=== PATIENT | female | born 1985 ===

== ENCOUNTER 2020-07-24 14:34 | Outpatient (REF) | payer OTHER, SELFPAY ==
[2020-07-25 09:48] LABS: BV Int Neg Control Negative (Negative); BV Int Pos Control Positive (Positive)
[2020-07-27 03:52] LABS: N. gonorrhoeae RNA TMA NOT DETECTED (NOT DETECTED)
[2020-07-27 15:25] LABS: C. trachomatis RNA TMA NOT DETECTED (NOT DETECTED)
== END 2020-07-24 14:35 | disposition home or self-care (01) ==
LOC: HO.LAB 14:34
PROVIDERS: PCP Internal Medicine; Visit Provider Advanced Practice Midwife
DX: Z11.3 Encounter for screening for infections with a predominantly sexual mode of transmission (principal); N89.8 Other specified noninflammatory disorders of vagina
CPT/HCPCS: 87480; 87491; 87510; 87591; 87660; 99212

== ENCOUNTER → 2020-10-02 13:01 | Outpatient (BNVA) | payer OTHER, SELFPAY | PROVIDERS: Visit Provider Advanced Practice Midwife ==

== ENCOUNTER 2021-01-25 12:15 | Outpatient (REF) | payer OTHER, SELFPAY ==
[2021-01-25 14:02] LABS: Glucose Urine UA NEG (NEG); Leukocyte Esterase Urine NEG (NEG); Nitrite Urine NEG (NEG); PH 5.5 (5.0-8.0); Specific Gravity - Urine <= 1.005 (1.005-1.025); Urine Blood NEG (NEG); Urine Ketones NEG (NEG); Urine Protein NEG (NEG-TRACE)
[2021-01-25 14:06] LABS: Appearance Urine CLEAR; Color Urine STRAW
== END 2021-01-25 12:16 | disposition home or self-care (01) ==
LOC: HO.LAB 12:15
PROVIDERS: PCP Internal Medicine; Visit Provider Internal Medicine
DX: R30.0 Dysuria (principal)
CPT/HCPCS: 81003

== ENCOUNTER 2021-02-01 13:55 | Outpatient (REF) | payer OTHER, SELFPAY | END 2021-02-01 13:56 | disposition home or self-care (01) | LOC: HO.LNP 13:55 | PROVIDERS: Visit Provider Hospitalist | DX: R30.0 Dysuria (principal) | CPT/HCPCS: 87086; 87088 ==

== ENCOUNTER 2021-02-26 12:51 | Outpatient (REF) | payer OTHER, SELFPAY ==
[2021-02-26 14:39] LABS: Glucose Urine UA NEG (NEG); Leukocyte Esterase Urine NEG (NEG); Nitrite Urine NEG (NEG); Specific Gravity - Urine 1.025 (1.005-1.025); Urine Blood TRACE (NEG); Urine Ketones NEG (NEG); Urine Protein NEG (NEG-TRACE)
[2021-02-26 14:46] LABS: Appearance Urine CLEAR; Color Urine YELLOW
[2021-02-26 15:34] LABS: Bacteria Urine 1+ /LPF; RBC Urine 0-2 /HPF (0); Squamous Epithelial Cell Urine 4+ /LPF
== END 2021-02-26 12:52 | disposition home or self-care (01) ==
LOC: HO.LAB 12:51
PROVIDERS: PCP Internal Medicine; Visit Provider Hospitalist
DX: R30.0 Dysuria (principal)
CPT/HCPCS: 81001; 81003; 87086

== ENCOUNTER 2021-11-12 12:57 | Outpatient (REF) | payer OTHER, SELFPAY ==
[2021-11-13 05:54] LABS: CT PCR NOT DETECTED (Not Detect.); NG PCR NOT DETECTED (Not Detect.)
[2021-11-13 15:41] LABS: BV Int Neg Control Negative (Negative); BV Int Pos Control Positive (Positive)
[2021-11-14 16:32] LABS: HPV mRNA E6/E7 rflx Not Detected (Not Detected)
== END 2021-11-12 12:58 | disposition home or self-care (01) ==
LOC: HO.LAB 12:57
PROVIDERS: Visit Provider Advanced Practice Midwife
DX: Z01.419 Encounter for gynecological examination (general) (routine) without abnormal findings (principal); N89.8 Other specified noninflammatory disorders of vagina; Z11.3 Encounter for screening for infections with a predominantly sexual mode of transmission; Z11.8 Encounter for screening for other infectious and parasitic diseases; Z11.51 Encounter for screening for human papillomavirus (HPV); R61 Generalized hyperhidrosis; Z98.51 Tubal ligation status; Z79.899 Other long term (current) drug therapy; B37.3 Candidiasis of vulva and vagina
CPT/HCPCS: 87480; 87491; 87510; 87591; 87624; 87660; 88142

== ENCOUNTER 2022-03-22 18:36 | Outpatient (REF) | payer OTHER, SELFPAY ==
[2022-03-22 19:03] LABS: Appearance Urine Clear; Color Urine Yellow; Glucose Urine UA Negative (Negative); Leukocyte Esterase Urine Large (3+) (Negative); Nitrite Urine Negative (Negative); Specific Gravity - Urine <= 1.005 (1.005-1.025); Urine Blood Small (1+) (Negative); Urine Ketones 80 mg/dL (Negative); Urine Protein Negative (Neg-Trace)
[2022-03-22 19:19] LABS: Bacteria Urine Trace (None Seen); RBC Urine 0-2 /HPF (0-2); UACC Culture Trigger YES; WBC Urine 21-50 /HPF (0-5)
[2022-03-23 09:46] LABS: BV Int Neg Control Negative (Negative); BV Int Pos Control Positive (Positive)
== END 2022-03-22 18:37 | disposition home or self-care (01) ==
LOC: HO.LNP 18:36
PROVIDERS: Visit Provider Physician Assistant Medical
DX: B37.3 Candidiasis of vulva and vagina (principal); R30.0 Dysuria; N76.0 Acute vaginitis
CPT/HCPCS: 81001; 81003; 87086; 87480; 87510; 87660

== ENCOUNTER 2022-03-23 13:46 | Outpatient (REF) | payer OTHER, SELFPAY ==
[2022-03-23 15:14] LABS: MANUAL DIFF FLAG NO
[2022-03-23 15:18] LABS: Basophils Percent Auto 0.5 % (0-2); Eosinophils Percent Auto 0.3 % (0-4); Hematocrit 37.2 % (37.0-47.0); Hemoglobin 11.8 g/dl (12.0-16.0); Imm Gran Abs Auto 0.02 X10*3/uL (0.00-0.03); Imm Gran Pct Auto 0.3 % (0.0-0.4); Lymphocytes Absolute Auto 2.4 X10*3/uL (1.2-4.9); Lymphocytes Percent Auto 30.9 % (20-40); Mean Corpuscular HGB Conc 31.7 g/dl (31.0-35.0); Mean Corpuscular Hemoglobin 24.7 pg (27.0-33.0); Mean Corpuscular Volume 77.8 fL (80.0-98.0); Mean Platelet Volume 9.8 fL (9.4-12.3); Monocytes Absolute Auto 0.7 X10*3/uL (0.1-1.2); Monocytes Percent Auto 9.5 % (2-11); Neutrophils Absolute Auto 4.5 x10*3/uL (2.0-8.3); Neutrophils Percent Auto 58.5 % (45-73); Platelet Count 369 X10*3/uL (160-400); Red Blood Count 4.78 X10*6/uL (4.20-5.50); Red Cell Distribution Width 17.9 % (11.0-16.0); White Blood Count 7.7 X10*3/uL (4.8-10.8)
[2022-03-23 15:38] LABS: Iron 37 mcg/dL (30-160); Percent Iron Saturation 8 % (15-50); Total Iron Binding Capacity 474 mcg/dL (228-428); Unsaturated Iron Binding 437 ug/dL
== END 2022-03-23 13:47 | disposition home or self-care (01) ==
LOC: HO.HMGCLDS 13:46
PROVIDERS: Visit Provider Physician Assistant Medical
DX: N94.6 Dysmenorrhea, unspecified (principal)
CPT/HCPCS: 36415; 83540; 85025

== ENCOUNTER 2022-03-30 11:06 | Outpatient (REF) | payer OTHER, SELFPAY ==
[2022-03-30 14:18] LABS: Appearance Urine Clear; Color Urine Yellow; Glucose Urine UA Negative (Negative); Leukocyte Esterase Urine Negative (Negative); Nitrite Urine Negative (Negative); PH 6.5 (5.0-8.0); Specific Gravity - Urine <= 1.005 (1.005-1.025); Urine Blood Negative (Negative); Urine Ketones Negative (Negative); Urine Protein Negative (Neg-Trace)
== END 2022-03-30 11:07 | disposition home or self-care (01) ==
LOC: HO.HMGCLDS 11:06
PROVIDERS: Visit Provider Physician Assistant Medical
DX: R30.0 Dysuria (principal)
CPT/HCPCS: 81003

== ENCOUNTER 2022-06-14 11:12 | Outpatient (REF) | payer OTHER, SELFPAY ==
[2022-06-14 15:49] LABS: CT PCR NOT DETECTED (Not Detect.); NG PCR NOT DETECTED (Not Detect.)
[2022-06-15 10:23] LABS: BV Int Neg Control Negative (Negative); BV Int Pos Control Positive (Positive)
== END 2022-06-14 11:13 | disposition home or self-care (01) ==
LOC: HO.LNP 11:12
PROVIDERS: Visit Provider Advanced Practice Midwife
DX: Z11.3 Encounter for screening for infections with a predominantly sexual mode of transmission (principal); N89.8 Other specified noninflammatory disorders of vagina
CPT/HCPCS: 87480; 87491; 87510; 87591; 87660; 99212

== ENCOUNTER 2023-02-27 09:57 | Outpatient (AMB) | payer OTHER, SELFPAY ==
[2023-02-27 09:58] VITALS: BP 116/72; BMI 26.6
--- NOTE | 2023-02-27 09:58 | MHC.OFFVIS ---
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 She had her tubes removed it after the of her last child and so she is not worried about contraception. She has hyperhidrosis and the medication she is on causes lots of side effects for her in terms ends of dry mouth and other issues and in fact she had an episode of a dry cough during the visit and needed to drink some extra water she works out goes to the gym and lifts weights so she is definitely in shape. She is not particularly worried about STIs but wants full testing. She does remember having an abnormal Pap smear in the past although last year's was normal. She is currently in between primary care providers because she had been seen for a while. [facility] Medical History Hyperhidrosis Surgical History H/O abdominoplasty Hx of tonsillectomy Hx of tubal ligation Family History Mother High cholesterol Maternal Grandmother Diabetes mellitus Father High cholesterol Social History Alcohol intake: current Alcohol intake frequency: holidays/special occasions only Sexual orientation: Straight/Heterosexual Female Reproductive History Menstrual Age of Menarche: 16 Date of last menstrual period: 02/07/23 control method: permanent sterilization Total pregnancies: 4 Number of Living Children: 4 Date of last pap smear: 11/12/21 (wnl) History of abnormal pap smear: Yes (2015 [facility] 2013 ASCUS) Physical Exam Vital Signs: Last Vital Signs BP 116/72 02/27/23 09:58 BMI result Body Mass Index 26.6 Const General: healthy appearing, comfortable, no acute distress, well developed and alert Nutritional Appearance: average body habitus Orientation/consciousness: patient oriented x3 Limitations: no limitations HEENT Head: Yes normocephalic Neck Neck: Yes normal visual inspection Chest Chest palpation & inspection: normal inspection of the chest Breast/axilla inspection: normal inspection of the breasts and normal inspection of the axillae Breast/axilla palpation: normal palpation of the breasts and normal palpation of the axillae Resp Effort & Inspection: normal respiratory effort GI Inspection: Yes normal to inspection, No Abdominal wall edema and No distended Palpation (GI): Soft to palpation and nontender Other: Scar from abdominal plasty External vulva within normal limits vagina is moist cervix is multiparous white discharge consistent with luteal phase uterus small firm midposition nontender very good tone with Kegel adnexa nontender General: Yes bladder normal to palpation External Female Exam: normal external appearance and normal appearance of the urethra Speculum Exam - Vagina: normal appearance of the vagina, normal palpation and normal vaginal discharge Speculum Exam - Cervix: normal appearance of the cervix, normal palpation and nontender Bimanual exam- vagina & uterus: normal bimanual exam, normal palpation, uterine size normal, bladder normal to palpation, consistency normal, normal palpation, uterine mobility normal, uterine shape normal, No Cervical tenderness present, non-tender and no cervical motion tenderness Bimanual Exam- Adnexa, other: normal adnexae, no masses, normal and No adnexal tenderness Neuro General: patient oriented x3 Assessment & Plan Assessment & Plan (1) Screen for sexually transmitted diseases: Code(s): Z11.3 - Encounter for screening for infections with a predominantly sexual mode of transmission (2) Breast cancer screening: Code(s): Z12.39 - Encounter for other screening for malignant neoplasm of breast (3) Cervical cancer screening: Comment: Patient states history of abnormal Pap years ago. 11/12/21 Pap equals negative with negative HPV Code(s): Z12.4 - Encounter for screening for malignant neoplasm of cervix (4) Well woman exam with routine gynecological exam: Code(s): Z01.419 - Encounter for gynecological examination (general) (routine) without abnormal findings Plan -----Discussed in this visit the following: healthy balanced diet, regular and consistent exercise, getting recommended health screens, doing the best she can for her particular health concerns, kegel exercises, pap smear screening and followup recommendations, mammography screening and SBE, normal changes in cycles in her life stage--- . She isn't particularly worried but would like to get testing for HIV and hep BC and syphilis. One of placing orders I could see that there was comprehensive fasting blood test that had been done yet that were ordered last March by another provider I informed the patient of this and she had for gotten but she will go tomorrow morning fasting and get L everything done together. She is on the portal so she can get her results. She is taking excellent self care of herself and we will see her next year Orders: Orders Hepatitis B Surface Antigen Today Z01.419 - Encounter for gynecological examination (general) (routine) without abnormal findings, Z11.3 - Encounter for screening for infections with a predominantly sexual mode of transmission, Z12.39 - Encounter for other screening for malignant neoplasm of breast, Z12.4 - Encounter for screening for malignant neoplasm of cervix Hepatitis C Antibody Today Z01.419 - Encounter for gynecological examination (general) (routine) without abnormal findings, Z11.3 - Encounter for screening for infections with a predominantly sexual mode of transmission, Z12.39 - Encounter for other screening for malignant neoplasm of breast, Z12.4 - Encounter for screening for malignant neoplasm of cervix HIV Ab/Ag Today Z01.419 - Encounter for gynecological examination (general) (routine) without abnormal findings, Z11.3 - Encounter for screening for infections with a predominantly sexual mode of transmission, Z12.39 - Encounter for other screening for malignant neoplasm of breast, Z12.4 - Encounter for screening for malignant neoplasm of cervix Syphilis Screen Today Z01.419 - Encounter for gynecological examination (general) (routine) without abnormal findings, Z11.3 - Encounter for screening for infections with a predominantly sexual mode of transmission, Z12.39 - Encounter for other screening for malignant neoplasm of breast, Z12.4 - Encounter for screening for malignant neoplasm of cervix Coding Level of Care Code Est Pt Prev Care 18-39y(21947) Diagnoses Screen for sexually transmitted diseases Z11.3 Breast cancer screening Z12.39 Cervical cancer screening Z12.4 Well woman exam with routine gynecological exam Z01.419
== END 2023-02-27 10:58 | disposition home or self-care (01) ==
LOC: HO.HWS 09:57
PROVIDERS: Visit Provider Advanced Practice Midwife
DX: Z01.419 Encounter for gynecological examination (general) (routine) without abnormal findings (principal); Z11.3 Encounter for screening for infections with a predominantly sexual mode of transmission; Z12.39 Encounter for other screening for malignant neoplasm of breast
CPT/HCPCS: 99395

== ENCOUNTER 2023-02-27 09:57 | Outpatient (REF) | payer OTHER, SELFPAY ==
[2023-02-28 02:36] LABS: CT PCR NOT DETECTED (Not Detect.); NG PCR NOT DETECTED (Not Detect.)
[2023-02-28 13:20] LABS: BV Int Neg Control Negative (Negative); BV Int Pos Control Positive (Positive)
[2023-03-07 06:10] LABS: HPV mRNA E6/E7 rflx Not Detected (Not Detected)
== END 2023-02-27 09:58 | disposition home or self-care (01) ==
LOC: HO.LNP 09:57
PROVIDERS: Visit Provider Advanced Practice Midwife
DX: Z01.419 Encounter for gynecological examination (general) (routine) without abnormal findings (principal); Z12.39 Encounter for other screening for malignant neoplasm of breast; Z20.2 Contact with and (suspected) exposure to infections with a predominantly sexual mode of transmission
CPT/HCPCS: 0353U; 87480; 87510; 87624; 87660; 88142

== ENCOUNTER 2023-02-28 12:55 | Outpatient (REF) | payer OTHER, SELFPAY ==
[2023-03-03 04:03] LABS: Syphilis Screen Nonreactive (Nonreactive)
[2023-03-03 04:21] LABS: HBsAGNum1 0.58 S/CO (0.00-0.99); HIV AB/AG Nonreactive (Nonreactive); HIV Num 1 0.06 S/CO (0.00-0.99); Hepatitis B Surface Antigen Negative (Negative); ~Hepatitis C Antibody Nonreactive (Nonreactive)
== END 2023-02-28 12:56 | disposition home or self-care (01) ==
LOC: HO.LAB 12:55
PROVIDERS: Visit Provider Advanced Practice Midwife
DX: Z01.419 Encounter for gynecological examination (general) (routine) without abnormal findings (principal); Z12.39 Encounter for other screening for malignant neoplasm of breast; Z11.3 Encounter for screening for infections with a predominantly sexual mode of transmission
CPT/HCPCS: 36415; 86780; 86803; 87340; 87389

== ENCOUNTER 2023-12-22 13:14 | Outpatient (AMB) | payer OTHER, SELFPAY ==
[2023-12-22 14:17] VITALS: BP 130/76; PULSE 115; TEMP 36.4; O2SAT 96; BMI 26.4
--- NOTE | 2023-12-22 14:17 | MHC.OFFWIV ---
Intake Vital Signs 12/22/23 14:17 Height 5 ft 3 in Weight 149 lb BMI 26.4 BP 130/76 Blood Pressure Location Lt brachial Position Sitting Pulse 115 H Pulse Source Pulse Oximeter Temp 97.6 F Temp Source Temporal Artery Scan Pulse Oximetry (%) 96 Oxygen Delivery Method Room Air Intake Visit Reasons: EP rash on back Intake Note: pt is her today for rash on back started july Patient Tobacco Use Status: Never used Tobacco Allergies No Known Allergies Allergy (Mild, Verified 12/22/23 14:20) UNKNOWN Do you need a note to return to daycare/school/sports/work: Yes HPI HPI Comments History of Present Illness Details Patient presents to the walk-in today for sick visit Complaining of rash to left lower back for last 5 months States it is worse in the morning where where it will be red and itchy, improves throughout the day No known allergies no changes in diet, lotions, laundry detergents, soaps PFSH Medical History Hyperhidrosis Surgical History H/O abdominoplasty Hx of tonsillectomy Hx of tubal ligation Family History Mother High cholesterol Maternal Grandmother Diabetes mellitus Father High cholesterol Social History Alcohol intake: current Alcohol intake frequency: holidays/special occasions only Patient Tobacco Use Status: Never used Tobacco Sexual orientation: Straight/Heterosexual Female Reproductive History Menstrual Age of Menarche: 16 Review of Systems Const All systems reviewed & are unremarkable except as noted in HPI and below Physical Exam Vital Signs: Last Vital Signs Temp 97.6 F 12/22/23 14:17 Pulse 115 H 12/22/23 14:17 BP 130/76 12/22/23 14:17 Pulse Ox 96 12/22/23 14:17 Oxygen Delivery Method Room Air 12/22/23 14:17 BMI result Body Mass Index 26.4 General: awake, alert, oriented. Answers questions appropriately. Fully engaged in examination. Skin: warm, dry, intact. Faint pink macular rash left lower back HEENT: Normocephalic. Hearing intact. Cardiac: External chest normal in appearance. Respiratory: No cough, audible wheezing or stridor. Abdomen: without gross distension. MS: No obvious swelling or deformities. Neurological: Oriented to person, place, time and situation. Thought process intact. No gait abnormalities appreciated. Psychiatric: Appropriate mood and affect. Good judgment and insight. Assessment & Plan Assessment & Plan (1) Rash: Code(s): R21 - Rash and other nonspecific skin eruption Plan Hydroxyzine 25 mg p.o. b.i.d. as needed for itching Referral placed for dermatology follow-up All questions and concerns were answered, patient agrees with the plan. Follow up with PCP, dermatology or return here for any new or worsening symptoms Orders: Referrals Dermatology Referral R21 - Rash and other nonspecific skin eruption Medications: New hydroxyzine HCl 25 mg PO BID PRN 30 tabs 0RF itching Coding Level of Care Code Est Pt Level 3 (41023) Diagnoses Rash R21
== END 2023-12-22 16:06 | disposition home or self-care (01) ==
PROVIDERS: Visit Provider Registered Nurse Emergency
DX: R21 Rash and other nonspecific skin eruption (principal)
CPT/HCPCS: 99213

== ENCOUNTER 2024-03-05 09:19 | Outpatient (REF) | payer OTHER, SELFPAY ==
[2024-03-06 09:14] LABS: Bacterial Vaginosis PCR NEGATIVE (Negative); Candida Group PCR NOT DETECTED (Not Detect); Candida glab krusei PCR NOT DETECTED (Not Detect); Trichomonas vaginalis PCR NOT DETECTED (Not Detect)
[2024-03-06 09:51] LABS: CT PCR NOT DETECTED (Not Detect.); NG PCR NOT DETECTED (Not Detect.)
[2024-03-09 19:44] LABS: HPV mRNA E6/E7 Not Detected (Not Detected)
== END 2024-03-05 09:20 | disposition home or self-care (01) ==
LOC: HO.LAB 09:19
PROVIDERS: Visit Provider Advanced Practice Midwife
DX: Z01.419 Encounter for gynecological examination (general) (routine) without abnormal findings (principal); Z11.51 Encounter for screening for human papillomavirus (HPV); Z20.2 Contact with and (suspected) exposure to infections with a predominantly sexual mode of transmission; N89.8 Other specified noninflammatory disorders of vagina
CPT/HCPCS: 0352U; 36415; 87491; 87591; 87624; 88175; 99395

== ENCOUNTER 2024-03-05 09:19 | Outpatient (AMB) | payer OTHER, SELFPAY ==
--- NOTE | 2024-03-05 09:27 | A.OFFVIS_ITS ---
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: No Contract Sheltered Workshop Supervisor Services: Contract Sheltered Workshop Supervisor Present Operating Theatre Technician: Operating Theatre Technician Present Allergies No Known Allergies Allergy (Mild, Verified 03/05/24 10:03) UNKNOWN Medication List - Last Reconciled 03/05/24 by Meli Ruano CNM glycopyrrolate 2 mg PO QID Is last menstrual period known: Yes Last menstrual period: 02/18/24 Do you need a note to return to daycare/school/sports/work: No HPI HPI 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 She is not having any nurse gynecology concerns she had an abnormal Pap smear last year and had an abnormal Pap smear many years ago when she was younger. Per ask cap the Pap needs to be repeated this year the Pap was DANYEL 1 with negative HPV in 2022. She has had her tubes tied. She delivered 4 children vaginally she later had abdominoplasty, when she was 21 years old but she regrets that she said she was talked into it by her mother. She has been feeling like she is taking better care of herself lately she is trying to exercise regularly with weights and cardio and she is also trying to eat better. The only medication she is on is for hydro hidradenitis which is very annoying if she does not take it her hands drip. She says she does not have a primary care provider she is to have Dr. Leiva but she was changed from him she would like to have a women PCC she says Dr. Funes has continued her prescription but she is not her PCC. She has no family history of breast cancers as far she knows. [facility] Medical History Hyperhidrosis Surgical History H/O abdominoplasty Hx of tonsillectomy Hx of tubal ligation Family History Mother High cholesterol Maternal Grandmother Diabetes mellitus Father High cholesterol Social History Alcohol intake: current Alcohol intake frequency: holidays/special occasions only Patient Tobacco Use Status: Never used Tobacco Sexual orientation: Straight/Heterosexual Female Reproductive History Menstrual Age of Menarche: 16 Duration of menses: 3-5 days Date of last menstrual period: 02/18/24 control method: progestin IUCD Total pregnancies: 4 Full term: 4 Date of last pap smear: 03/04/23 (Abn. pap, DANYEL I, previous pap neg. 11/13/21) History of abnormal pap smear: Yes (Abn.) Physical Exam Const General: healthy appearing, comfortable, no acute distress, well developed and alert Nutritional Appearance: average body habitus Orientation/consciousness: patient oriented x3 Limitations: no limitations HEENT Head: Yes normocephalic Neck Neck: Yes normal visual inspection Chest Chest palpation & inspection: normal inspection of the chest Breast/axilla inspection: normal inspection of the breasts and normal inspection of the axillae Breast/axilla palpation: normal palpation of the breasts and normal palpation of the axillae Resp Effort & Inspection: normal respiratory effort GI Inspection: Yes normal to inspection, No Abdominal wall edema and No distended Palpation (GI): Soft to palpation and nontender General: Yes bladder normal to palpation External Female Exam: normal external appearance and normal appearance of the urethra Speculum Exam - Vagina: normal appearance of the vagina, normal palpation and normal vaginal discharge Speculum Exam - Cervix: normal appearance of the cervix, normal palpation and nontender Bimanual exam- vagina & uterus: normal bimanual exam, normal palpation, uterine size normal, bladder normal to palpation, consistency normal, normal palpation, uterine mobility normal, uterine shape normal, No Cervical tenderness present, non-tender and no cervical motion tenderness Bimanual Exam- Adnexa, other: normal adnexae, no masses, normal and No adnexal tenderness Neuro General: patient oriented x3 Results Reviewed Results Reviewed: Name: Dannielle Olivares Age/Sex: 37/F Attending: Meli Ruano CNM : 1985 Submitted by: Meli Ruano CNM Copies to: Physician,Nonstaff MR #: [id number] Status: DEP REF Collected: 02/27/23 Location: [facility] Received: 03/04/23 Interpretation General Category: Epithelial cell abnormality. Adequacy: Endocervical component present. Interpretation: Low grade squamous intraepithelial lesion (DANYEL I). HPV mRNA E6/E7: Not Detected This assay detects E6/E7 viral messenger RNA (mRNA) from 14 high-risk HPV types (16, 18, 31, 33, 35, 39, 45, 51, 52, 56, 58, 59, 66, 68) HPV testing performed by [facility], [place], [place]. See reference laboratory portion of the EMR for entire report. Clinical Information LMP: 02/07/23 Previous PAP test: 11/12/21, Abnormal Other history: 2013 ASCUS, 2015 DANYEL I Material Received ThinPrep-[place]ical [place] [address] [phone] [place] [address] Electronically Signed By: Sixto Awan MD 03/13/23 3227 The Pap Test is a screening procedure with the inherent possibility of both false negative and false positive results. Results should be interpreted in the context of historic and current clinical findings. Reliability of the Pap Test is enhanced by performing the test on a regular repetitive basis. Patient: Dannielle Olivares Age/Sex: Assessment & Plan Assessment & Plan (1) Well woman exam with routine gynecological exam: Code(s): Z01.419 - Encounter for gynecological examination (general) (routine) without abnormal findings Category: Medical (2) Screen for sexually transmitted diseases: Code(s): Z11.3 - Encounter for screening for infections with a predominantly sexual mode of transmission Category: Medical (3) Breast cancer screening: Code(s): Z12.39 - Encounter for other screening for malignant neoplasm of breast Category: Medical (4) Cervical cancer screening: Comment: Patient states history of abnormal Pap years ago. ( when she had her 17 yr old) 11/12/21 Pap equals negative with negative HPV; 02/27/2023 Pap shows DANYEL 1 with negative HPV,; [facility]P re 1 yr followup. Code(s): Z12.4 - Encounter for screening for malignant neoplasm of cervix Category: Medical Plan -----Discussed in this visit the following: healthy balanced diet, regular and consistent exercise, getting recommended health screens, doing the best she can for her particular health concerns, kegel exercises, pap smear screening and followup recommendations, mammography screening and SBE, normal changes in cycles in her life stage--- . Reviewed her history of abnormal Paps and reviewed the natural history of HPV infection she started being sexually active very young and at the time Pap smear is being done I younger ages as well. She delivered 4 children vaginally, and then had tubal like her 1st abnormal Pap was after her 3rd child. We will wait the results of this Pap smear reviewed the variable amounts of time Pap smears are taking to be reviewed and if she does not hear from us within a month I asked her to call to check on the Pap to make sure did not get lost in system She is doing very well with self-care and eating well and exercise, and I congratulated her on that. I apologized for the erroneous information about her appointment location today by e-mail and text. I suggested that she may want to actually go to her PCC office where she had been seen and try to ensure that she is being given a PCC provider, since she has been without one officially for years.( she has needed to go to urgent care when she has an issue such as a rash that she had some months ago, that since disappeared) she is interested in full STI testing I will place the orders. Orders: Orders Hepatitis B Surface Antigen Today Z01.419 - Encounter for gynecological examination (general) (routine) without abnormal findings, Z11.3 - Encounter for screening for infections with a predominantly sexual mode of transmission, Z12.39 - Encounter for other screening for malignant neoplasm of breast, Z12.4 - Encounter for screening for malignant neoplasm of cervix Hepatitis C Antibody Today Z01.419 - Encounter for gynecological examination (general) (routine) without abnormal findings, Z11.3 - Encounter for screening for infections with a predominantly sexual mode of transmission, Z12.39 - Encounter for other screening for malignant neoplasm of breast, Z12.4 - Encounter for screening for malignant neoplasm of cervix Syphilis Screen Today Z01.419 - Encounter for gynecological examination (general) (routine) without abnormal findings, Z11.3 - Encounter for screening for infections with a predominantly sexual mode of transmission, Z12.39 - Encounter for other screening for malignant neoplasm of breast, Z12.4 - Encounter for screening for malignant neoplasm of cervix HIV Ab/Ag Today Z01.419 - Encounter for gynecological examination (general) (routine) without abnormal findings, Z11.3 - Encounter for screening for infections with a predominantly sexual mode of transmission, Z12.39 - Encounter for other screening for malignant neoplasm of breast, Z12.4 - Encounter for screening for malignant neoplasm of cervix Coding Level of Care Code Est Pt Prev Care 18-39y(21513) Diagnoses Well woman exam with routine gynecological exam Z01.419 Screen for sexually transmitted diseases Z11.3 Breast cancer screening Z12.39 Cervical cancer screening Z12.4
[2024-03-05 10:02] VITALS: BP 110/60; BMI 26.0
== END 2024-03-05 10:59 | disposition home or self-care (01) ==
PROVIDERS: Visit Provider Advanced Practice Midwife
DX: Z01.419 Encounter for gynecological examination (general) (routine) without abnormal findings (principal); Z11.3 Encounter for screening for infections with a predominantly sexual mode of transmission; Z12.39 Encounter for other screening for malignant neoplasm of breast; Z12.4 Encounter for screening for malignant neoplasm of cervix
CPT/HCPCS: 99395

== ENCOUNTER 2024-06-19 09:38 | Outpatient (REF) | payer OTHER, SELFPAY ==
[2024-06-20 08:54] LABS: Syphilis Screen Nonreactive (Nonreactive)
[2024-06-20 09:00] LABS: HBsAGNum1 0.36 S/CO (0.00-0.99); HIV AB/AG Nonreactive (Nonreactive); HIV Num 1 0.09 S/CO (0.00-0.99); Hepatitis B Surface Antigen Negative (Negative); ~HepC Num1 1.36 S/CO (0.00-0.79); ~Hepatitis C Antibody Reactive (Nonreactive)
== END 2024-06-19 09:39 | disposition home or self-care (01) ==
LOC: HO.LAB 09:38
PROVIDERS: Visit Provider Advanced Practice Midwife
DX: Z01.419 Encounter for gynecological examination (general) (routine) without abnormal findings (principal); Z11.3 Encounter for screening for infections with a predominantly sexual mode of transmission; Z12.39 Encounter for other screening for malignant neoplasm of breast
CPT/HCPCS: 36415; 86780; 86803; 87340; 87389

== ENCOUNTER 2024-07-05 15:29 | Outpatient (AMB) | payer OTHER, SELFPAY ==
[2024-07-05 15:37] VITALS: PULSE 113; O2SAT 99; BMI 26.6
--- NOTE | 2024-07-05 15:37 | MHC.OFFVIS ---
Vital Signs 07/05/24 15:37 Height 5 ft 3 in Weight 150 lb BMI 26.6 Pulse 113 H Pulse Source Pulse Oximeter Pulse Oximetry (%) 99 Oxygen Delivery Method Room Air Intake Visit Reasons: Meli Ob reff hepatitis C without hepatic coma Allergies No Known Allergies Allergy (Mild, Verified 07/05/24 15:38) UNKNOWN HPI HPI Meli Calero reff hepatitis C without hepatic coma: Details: She is here for evaluation Hepatitis C. 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 She had syphilis reactive on 06/19. She has RPR negative and HIV negative. PFSH Medical History Hyperhidrosis Surgical History H/O abdominoplasty Hx of tonsillectomy Hx of tubal ligation Family History Mother High cholesterol Maternal Grandmother Diabetes mellitus Father High cholesterol Social History Alcohol intake: current Alcohol intake frequency: holidays/special occasions only Patient Tobacco Use Status: Never used Tobacco Sexual orientation: Straight/Heterosexual Female Reproductive History Menstrual Age of Menarche: 16 Review of Systems Const All systems reviewed & are unremarkable except as noted in HPI and below Physical Exam Vital Signs: Last Vital Signs Pulse 113 H 07/05/24 15:37 Pulse Ox 99 07/05/24 15:37 Oxygen Delivery Method Room Air 07/05/24 15:37 BMI result Body Mass Index 26.6 Const General: cooperative Orientation/consciousness: patient oriented x3 HEENT Head: Yes normal to inspection Mouth: Normal oral and palatal mucosa present Eyes General: appearance normal, both eyes and all related structures Pupils: Equal, round and reactive pupils present Resp Effort & Inspection: normal respiratory effort Cardio Rate: regular rate Rhythm: regular rhythm GI Palpation (GI): Soft to palpation and nontender General: Yes no CVA tenderness Back/Spine/Pelvis Back: no CVA tenderness Skin General skin exam: no rashes or lesions noted Neuro General: patient oriented x3 Cranial nerves: Yes CN's II-XII intact bilaterally and Yes Equal, round and reactive pupils present Extrem General: Yes normal to inspection Psych Appearance: grossly normal Assessment & Plan Assessment & Plan (1) Hepatitis-C: Comment: She has new diagnosis Hepatitis C positive. Code(s): B19.20 - Unspecified viral hepatitis C without hepatic coma Category: Medical Plan: Would check Hepatitis C viral load. Start Epclusa or Mavyret if positive. Orders: Orders Hepatitis C Genotype 07/05/24 B19.20 - Unspecified viral hepatitis C without hepatic coma Prothrombin Time INR 07/05/24 B19.20 - Unspecified viral hepatitis C without hepatic coma Basic Metabolic Panel 07/05/24 B19.20 - Unspecified viral hepatitis C without hepatic coma Hepatitis A IgG 07/05/24 B19.20 - Unspecified viral hepatitis C without hepatic coma Hepatitis C Viral Load 07/05/24 B19.20 - Unspecified viral hepatitis C without hepatic coma Liver Fibrosis Pnl 07/05/24 B19.20 - Unspecified viral hepatitis C without hepatic coma Complete Blood Count Auto Diff 07/05/24 B19.20 - Unspecified viral hepatitis C without hepatic coma Hepatitis B Surface Antibody 07/05/24 B19.20 - Unspecified viral hepatitis C without hepatic coma Coding Level of Care Code New Pt Level 3 (36447) Diagnoses Hepatitis-C B19.20
== END 2024-07-05 15:54 | disposition home or self-care (01) ==
PROVIDERS: Visit Provider Internal Medicine
DX: B19.20 Unspecified viral hepatitis C without hepatic coma (principal)
CPT/HCPCS: 99203

== ENCOUNTER 2024-07-05 15:29 | Outpatient (REF) | payer OTHER, SELFPAY ==
[2024-07-05 16:15] LABS: MANUAL DIFF FLAG NO
[2024-07-05 17:12] LABS: Basophils Percent Auto 0.7 % (0-2); Eosinophils Absolute Auto 0.1 X10*3/uL (0.0-0.4); Eosinophils Percent Auto 1.7 % (0-4); Hematocrit 37.5 % (37.0-47.0); Hemoglobin 12.5 g/dl (12.0-16.0); Imm Gran Abs Auto 0.02 X10*3/uL (0.00-0.03); Imm Gran Pct Auto 0.3 % (0.0-0.4); Lymphocytes Absolute Auto 2.2 X10*3/uL (1.2-4.9); Lymphocytes Percent Auto 37.3 % (20-40); Mean Corpuscular HGB Conc 33.3 g/dl (31.0-35.0); Mean Corpuscular Hemoglobin 27.3 pg (27.0-33.0); Mean Corpuscular Volume 81.9 fL (80.0-98.0); Mean Platelet Volume 9.1 fL (9.4-12.3); Monocytes Absolute Auto 0.5 X10*3/uL (0.1-1.2); Monocytes Percent Auto 8.6 % (2-11); Neutrophils Percent Auto 51.4 % (45-73); Platelet Count 322 X10*3/uL (160-400); Red Blood Count 4.58 X10*6/uL (4.20-5.50); Red Cell Distribution Width 13.9 % (11.0-16.0); White Blood Count 5.8 X10*3/uL (4.8-10.8)
[2024-07-05 17:30] LABS: Prothrombin Time 11.8 SEC (10.9-12.4)
[2024-07-05 17:46] LABS: Anion Gap 14 (12-20); Blood Urea Nitrogen 14 mg/dL (9-16); Calcium 9.8 mg/dL (8.4-10.2); Carbon Dioxide 24 mmol/L (22-29); Chloride 103 mmol/L (96-108); Estimated Glomerular Filt Rate > 60; Glucose Random 86 mg/dL (60-115); Potassium 3.8 mmol/L (3.3-5.1); Sodium 137 mmol/L (135-145)
[2024-07-06 04:02] LABS: ~Hepatitis B Surface Antibody REACTIVE (Nonreactive)
[2024-07-06 04:12] LABS: Hepatitis A Antibody IgG Nonreactive (Nonreactive); ~Hepatitis A Antibody IgG 0.35 S/CO (0.00-0.99)
[2024-07-07 20:02] LABS: HCV RNA PCR Qn <1.18 NOT DETECTED Log IU/mL (NOT DETECTED)
[2024-07-08 09:00] LABS: HCV RNA PCR Qn <15 NOT DETECTED
[2024-07-12 16:24] LABS: FIB-ALT 12 U/L (6-29); FIB-Alpha-2-Macroglobulin 134 mg/dL (106-279); FIB-Apolipoprotein A1 143 mg/dL (101-198); FIB-GGT 15 U/L (3-50); FIB-Haptoglobin 114 mg/dL (43-212); FIB-Total Bilirubin 0.4 mg/dL (0.2-1.2); Liver Fibrosis Score 0.05; Liver Fibrosis Stage F0; Nec Inflam Act Grade A0; Nec Inflam Act Score 0.02; Reference ID 5238106
== END 2024-07-05 15:30 | disposition home or self-care (01) ==
LOC: HO.LAB 15:29
PROVIDERS: Visit Provider Internal Medicine
DX: B19.20 Unspecified viral hepatitis C without hepatic coma (principal)
CPT/HCPCS: 36415; 80048; 81596; 85025; 85610; 86706; 86708; 87522; 87902; 99202

== ENCOUNTER 2024-07-26 13:08 | Outpatient (AMB) | payer OTHER, SELFPAY ==
--- NOTE | 2024-07-26 13:05 | MHC.OFFVIS ---
Intake Visit Reasons: lab follow up ok per Allergies No Known Allergies Allergy (Mild, Verified 07/05/24 15:38) UNKNOWN HPI HPI lab follow up ok per : Details: She has negative Hepatitis C viral load. F0 is liver result. She has positive Hepatitis B antibodies and negative Hepatitis A antibodies. PFSH Medical History Hyperhidrosis Surgical History H/O abdominoplasty Hx of tonsillectomy Hx of tubal ligation Family History Mother High cholesterol Maternal Grandmother Diabetes mellitus Father High cholesterol Social History Alcohol intake: current Alcohol intake frequency: holidays/special occasions only Patient Tobacco Use Status: Never used Tobacco Sexual orientation: Straight/Heterosexual Female Reproductive History Menstrual Age of Menarche: 16 Review of Systems Const All systems reviewed & are unremarkable except as noted in HPI and below Physical Exam Const General: cooperative Orientation/consciousness: patient oriented x3 HEENT Head: Yes normal to inspection Mouth: Normal oral and palatal mucosa present Eyes General: appearance normal, both eyes and all related structures Pupils: Equal, round and reactive pupils present Resp Effort & Inspection: normal respiratory effort Cardio Rate: regular rate Rhythm: regular rhythm GI Palpation (GI): Soft to palpation and nontender General: Yes no CVA tenderness Back/Spine/Pelvis Back: no CVA tenderness Skin General skin exam: no rashes or lesions noted Neuro General: patient oriented x3 Cranial nerves: Yes CN's II-XII intact bilaterally and Yes Equal, round and reactive pupils present Extrem General: Yes normal to inspection Psych Appearance: grossly normal Telehealth Telehealth Telehealth Platform: Telephone Location of provider rendering services: practice address Location of patient: address on file Patient Identification confirmed using: Name, : Yes Telehealth method: voice only Patient verbally consented to treatment: Yes Patient verbally consented to billing insurance company: Yes Patient informed of any privacy concerns related to visit: Yes Assessment & Plan Assessment & Plan (1) Hepatitis-C: Comment: She has negative Hepatitis C viral load so didnt become chronic and is free of Hepatitis C. No treatment or followup needed. Get Hepatitis A vaccine series. Find new PCP. Check partner for Hepatitis C as she can get reinfected. Code(s): B19.20 - Unspecified viral hepatitis C without hepatic coma Category: Medical Plan: na Coding Level of Care Code Est Pt Level 3 (59320) Diagnoses Hepatitis-C B19.20
== END 2024-07-26 14:51 | disposition home or self-care (01) ==
LOC: HO.HID 13:08
PROVIDERS: Visit Provider Internal Medicine
DX: B19.20 Unspecified viral hepatitis C without hepatic coma (principal)
CPT/HCPCS: 99213

== ENCOUNTER → 2024-07-26 13:08 | Outpatient (BNVA) | payer OTHER, SELFPAY | PROVIDERS: Visit Provider Internal Medicine | DX: B19.20 Unspecified viral hepatitis C without hepatic coma (principal) | CPT/HCPCS: 99212 ==

== ENCOUNTER 2024-08-05 13:44 | Outpatient (AMB) | payer OTHER, SELFPAY ==
--- NOTE | 2024-08-05 13:48 | A.OFFVIS_ITS ---
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 She had noticed more abundant discharge recently she had tested for STIs and asked her partner to get tested very defensive they broke up so she wants to make double sure that everything is okay. She was thinking that the discharge might because of ovulation but she wants to be sure. She did not go get blood work STIs done after the break-up and they were all negative and in addition she got Hep C viral load testing w [facility] and it was negative for the hep C. She is considering being single as it is less stressful. [facility] Medical History Hyperhidrosis Surgical History H/O abdominoplasty Hx of tonsillectomy Hx of tubal ligation Family History Mother High cholesterol Maternal Grandmother Diabetes mellitus Father High cholesterol Social History Alcohol intake: current Alcohol intake frequency: holidays/special occasions only Patient Tobacco Use Status: Never used Tobacco Sexual orientation: Straight/Heterosexual Female Reproductive History Menstrual Age of Menarche: 16 Duration of menses: 3-5 days Date of last menstrual period: 07/20/24 control method: permanent sterilization Total pregnancies: 4 Full term: 4 Date of last pap smear: 03/04/23 (DANYEL I,2021 negatve) History of abnormal pap smear: Yes Physical Exam Vital Signs: Last Vital Signs BP 100/60 08/05/24 13:49 BMI result Body Mass Index 26.6 Other: VAGINA IS PINK AND CLEAR MUCUS IS CLEAR SHINY NOT PARTICULARLY ABUNDANT BUT CONSISTENT DAYS APPROACHING OVULATION. CERVIX MULTIPAROUS CLEAR NONTENDER. External Female Exam: normal external appearance and normal appearance of the urethra Speculum Exam - Vagina: normal appearance of the vagina and normal vaginal discharge Speculum Exam - Cervix: normal appearance of the cervix and Cervical os closed Results Reviewed Results Reviewed: Name: Dannielle Olivares Age/Sex: 37/F Attending: Meli Ruano CNM : 1985 Submitted by: Meli Ruano CNM Copies to: Mike Pan MR #: [id number] Status: DEP REF Collected: 02/27/23 Location: [facility] Received: 03/04/23 Interpretation General Category: Epithelial cell abnormality. Adequacy: Endocervical component present. Interpretation: Low grade squamous intraepithelial lesion (DANYEL I). HPV mRNA E6/E7: Not Detected This assay detects E6/E7 viral messenger RNA (mRNA) from 14 high-risk HPV types (16, 18, 31, 33, 35, 39, 45, 51, 52, 56, 58, 59, 66, 68) HPV testing performed by [facility], [place], [place]. See reference laboratory portion of the EMR for entire report. Clinical Information LMP: 02/07/23 Previous PAP test: 11/12/21, Abnormal Other history: 2013 ASCUS, 2015 DANYEL I Material Received ThinPrep-Cervical [place] [address] [phone] Meli Ruano CNM [address] [place] [address] [place] [address] Electronically Signed By: Sixto Awan MD 03/13/23 [id number] The Pap Test is a screening procedure with the inherent possibility of both false negative and false positive results. Results should be interpreted in the context of historic and current clinical findings. Reliability of the Pap Test is enhanced by performing the test on a regular repetitive basis. Patient: [facility]annielle Olivares [facility]: 37[id number]#: [id number] Page 1 of 1 02/28/2024 PAP IS NEGATIVE WITH NEGATIVE HPV, SENT TO [facility]. IT IS LISTED IN THE SCANNED RESULTS SECTION OF THE LAB RESULTS. Assessment & Plan Assessment & Plan (1) Vaginal discharge: Code(s): N89.8 - Other specified noninflammatory disorders of vagina Category: Medical (2) Cervical cancer screening: Comment: Patient states history of abnormal Pap years ago. ( when she had her 17 yr old) 11/12/21 Pap equals negative with negative HPV; 02/27/2023 Pap shows DANYEL 1 with negative HPV,; [facility] re 1 yr followup.; 03/05/2024 Pap is negative with negative HPV. ([facility] note her positive history did not get included in the [facility] read out though it was included in the order). Code(s): Z12.4 - Encounter for screening for malignant neoplasm of cervix Category: Medical (3) Hepatitis-C: Comment: She has negative Hepatitis C viral load so didnt become chronic and is free of Hepatitis C. No treatment or followup needed. Get Hepatitis A vaccine series. Find new PCP. Check partner for Hepatitis C as she can get reinfected. Code(s): B19.20 - Unspecified viral hepatitis C without hepatic coma Category: Medical (4) Screen for sexually transmitted diseases: Code(s): Z11.3 - Encounter for screening for infections with a predominantly sexual mode of transmission Category: Medical Plan Testing for STIs by blood work offered it but she says she has had done. Testing done today for gonorrhea chlamydia trichomoniasis, as well as bacterial vaginosis and yeast. Discussed that the latter 2 are not infections per se but she would be offered medication if she has symptoms of them and she would definitely be offered for the 1st 3. She maybe on the portal discussed that she may be able to see the results before we do as the weekend is coming. Discussed safer sex. She had followed up with Dr. Zhao about hep C and is happy that that viral load is negative. Discussed the challenges of dating.. She has signed up with new nurse practitioner and seen her February. Reviewed that the last Pap in February came back negative w negative HPV. Orders: Orders CT NG by PCR Today N89.8 - Other specified noninflammatory disorders of vagina, Z20.2 - Contact with and (suspected) exposure to infections with a predominantly sexual mode of transmission Bacterial Vaginosis Panel Today N89.8 - Other specified noninflammatory disorders of vagina Coding Level of Care Code Est Pt Level 3 (66392) Diagnoses Vaginal discharge N89.8 Cervical cancer screening Z12.4 Hepatitis-C B19.20 Screen for sexually transmitted diseases Z11.3
[2024-08-05 13:49] VITALS: BP 100/60; BMI 26.6
== END 2024-08-05 14:51 | disposition home or self-care (01) ==
PROVIDERS: Visit Provider Advanced Practice Midwife
DX: N89.8 Other specified noninflammatory disorders of vagina (principal); Z12.4 Encounter for screening for malignant neoplasm of cervix; B19.20 Unspecified viral hepatitis C without hepatic coma; Z11.3 Encounter for screening for infections with a predominantly sexual mode of transmission
CPT/HCPCS: 99213

== ENCOUNTER 2024-08-05 13:44 | Outpatient (REF) | payer OTHER, SELFPAY ==
[2024-08-06 11:33] LABS: Bacterial Vaginosis PCR NEGATIVE (Negative); Candida Group PCR NOT DETECTED (Not Detect); Candida glab krusei PCR NOT DETECTED (Not Detect); Trichomonas vaginalis PCR NOT DETECTED (Not Detect)
[2024-08-06 12:20] LABS: CT PCR NOT DETECTED (Not Detect.); NG PCR NOT DETECTED (Not Detect.)
== END 2024-08-05 13:45 | disposition home or self-care (01) ==
LOC: HO.LAB 13:44
PROVIDERS: Visit Provider Advanced Practice Midwife
DX: N89.8 Other specified noninflammatory disorders of vagina (principal); Z20.2 Contact with and (suspected) exposure to infections with a predominantly sexual mode of transmission; Z11.3 Encounter for screening for infections with a predominantly sexual mode of transmission
CPT/HCPCS: 81515; 87491; 87591; 99212